=== PATIENT | male | born 1995 | race Caucasian/White ===

== ENCOUNTER 2023-05-13 17:16 | Emergency (ER) | payer SELFPAY ==
[2023-05-13 18:05] VITALS: BP 145/82; PULSE 98; RESP 20; TEMP 98.4; BMI 27.1
[2023-05-13 21:36] LABS: PH,URINE 5.5 (5.0-8.0); URINE APPEARANCE CLEAR; URINE BILIRUBIN NEGATIVE (NEGATIVE); URINE COLOR YELLOW; URINE GLUCOSE (UA) NEGATIVE (NEGATIVE); URINE KETONE TRACE (NEGATIVE); URINE LEUK ESTERASE NEGATIVE (NEGATIVE); URINE NITRITE NEGATIVE (NEGATIVE); URINE PROTEIN TRACE (NEGATIVE)
[2023-05-13 21:42] LABS: POTASSIUM 3.6 mmol/L (3.5-5.1)
[2023-05-13 21:44] LABS: ALBUMIN 3.7 g/dl (3.4-5.0); BLOOD UREA NITROGEN 16.5 mg/dL (7-18); CALCIUM 8.7 mg/dL (8.5-10.1)
[2023-05-13 21:49] LABS: TOT PROT 7.8 g/dl (6.4-8.2)
[2023-05-13 21:55] LABS: BASO % 1.5 % (0-2.0); HEMATOCRIT 47.1 % (35.4-49); LYMPH % 9.3 % (8-40); MEAN CELL VOLUME 85.4 fl (80-96); MEAN PLT VOLUME 8.9 fl (7.5-11.1); MONO % 9.3 % (3.8-10.2); NEUT % 79.9 % (42.8-82.8); PLATELET COUNT 297 10^3/uL (134-434); RBC 5.52 M/mm3 (4.00-5.60); RDW 13.8 % (11.9-15.9)
== END 2023-05-13 21:50 | disposition home or self-care (01) ==
LOC: JER 17:16
DX: T74.21XA Adult sexual abuse, confirmed, initial encounter (principal); K92.0 Hematemesis; K62.89 Other specified diseases of anus and rectum; Y07.9 Unspecified perpetrator of maltreatment and neglect; Y92.9 Unspecified place or not applicable
CPT/HCPCS: 80053; 81003; 82465; 85025; 86780; 87086; 87350; 87491; 87522; 87529; 87591; 87661; 99284-25